=== PATIENT | female | born 1985 | race American Indian/Alaskan Native ===

== ENCOUNTER 2017-08-25 18:16 | Emergency (ER) | payer SELFPAY | END 2017-08-25 18:30 | disposition left against medical advice (07) | LOC: ED 18:16 | DX: T78.40XA Allergy, unspecified, initial encounter (principal); Z53.21 Procedure and treatment not carried out due to patient leaving prior to being seen by health care provider ==

== ENCOUNTER 2017-09-28 02:05 | Emergency (ER) | payer SELFPAY ==
[2017-09-28 02:44] VITALS: BP 137/60
[2017-09-28] MEDS ORDERED: PEPCID PO ONE (02:44)
--- NOTE | 2017-09-28 06:15 | Emergency Department Report ---
HPI - General Chief Complaint: Allergic Reaction ED Past Medical Hx - Past Medical History Additional medical history: Enlarged thyroid, CHRONIC ALLERGIES - Surgical History Past Surgical History?: No - Social History Smoking Status: Never Smoker Substance Use Type: Marijuana - Medications Home Medications: Home Medications Medication Instructions Recorded Confirmed Last Taken Type Famotidine [Pepcid] 20 mg PO BID #20 tablet 04/15/14 Unknown Rx Prednisone 60 mg PO QDAY #4 day 04/15/14 Unknown Rx diphenhydrAMINE [Benadryl] 50 mg PO Q6HR #24 capsule 04/15/14 Unknown Rx ED Review of Systems ROS: Stated complaint: ALLERGIC REACTION,CHEST PAIN Other details as noted in HPI Physical Exam - Physical Exam Vital Signs: Vital Signs 09/28/17 02:34 Temperature 97.8 F Pulse Rate 93 H Respiratory 16 Rate Blood Pressure 137/60 O2 Sat by Pulse 100 Oximetry ED Course Vital Signs 09/28/17 02:34 Temperature 97.8 F Pulse Rate 93 H Respiratory 16 Rate Blood Pressure 137/60 O2 Sat by Pulse 100 Oximetry Critical care attestation.: If time is entered above; I have spent that time in minutes in the direct care of this critically ill patient, excluding procedure time. ED Disposition Condition: Stable Referrals: SHINE ADAM MD [Primary Care Provider] - 3-5 Days
== END 2017-09-28 07:49 | disposition left against medical advice (07) ==
LOC: ED 02:05
DX: R07.9 Chest pain, unspecified (principal); Z53.21 Procedure and treatment not carried out due to patient leaving prior to being seen by health care provider
CPT/HCPCS: 93005; 93010; J2930